=== PATIENT | male | born 1995 | race Caucasian/White ===

== ENCOUNTER 2025-04-26 14:20 | Outpatient (CLI) | payer OTHER, SELFPAY ==
--- NOTE | 2025-04-26 14:24 | XR_ITS ---
FINAL REPORT CLINICAL HISTORY: Subcutaneous mass of right foot COMPARISON: None FINDINGS: RIGHT FOOT 3 views of the right foot were obtained. There is no acute fracture or dislocation. Visualized joint spaces are normally aligned. There is a small os trigonum measuring 8 mm. Soft tissues are unremarkable. IMPRESSION: No acute bony abnormality. Small os trigonum. Reviewed, Interpreted and Dictated by Carlos Gutierrez MD Transcribed by Madelin Bajwa Authenticated and [facility]
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
--- OUTSIDE RECORDS SUMMARY | 2025-04-26 14:25 | XMS_ITS | Clinical Summary ---
Author Organization [facility] Address [address] [place] [address] Care Team Providers Care Prepress Specialist Name Role Phone Unavailable Primary Care Provider Unavailabl e Social History Tobacco Use Types Packs/Day Years Used Date Smoking Tobacco: Never Assessed Sex and Gender Information Value Date Recorded Sex Assigned at Not on file Legal Sex Male 12:27 PM EDT Gender Identity Not on file Sexual Orientation Not on file Plan of Treatment Health Maintenance Due Date Last Done Comments DTap,Tdap,and Td (1 - Tdap) 2008 Influenza Vaccine (Season Ended) 2025 RSV Vaccine (60+ or ) (1 - 1-dose 75+ series) 2072 HPV Aged Out No longer eligi ble based on patient's age to complete this topic Meningococcal conjugate emily nt 4 (MCV4) Aged Out No longer eligible b ased on patient's age to complete this topic Pneumococcal 0-49 Aged Out No longer eligible based on patient's age to complete this topic RSV Immunization (<20 months) Aged Out No longer eligible based on patient's age to complete this topic
--- OUTSIDE RECORDS SUMMARY | 2025-04-26 14:25 | XMS_ITS | Referral Summary ---
Author Organization [facility] Address [address] [place] [phone] Care Team Providers Care Portrait Photographer Name Role Phone Unavailable Primary Care Provider Unavailabl e Social History Tobacco Use Types Packs/Day Years Used Date Smoking Tobacco: Never Assessed Sex and Gender Information Value Date Recorded Sex Assigned at Not on file Legal Sex Male 12:27 PM EDT Gender Identity Not on file Sexual Orientation Not on file Plan of Treatment Not on file
== END 2025-04-26 23:59 | disposition home or self-care (01) ==
LOC: RAD 14:22
PROVIDERS: PCP Internal Medicine; Visit Provider Internal Medicine
DX: Q68.8 Other specified congenital musculoskeletal deformities (principal); R22.41 Localized swelling, mass and lump, right lower limb; M79.673 Pain in unspecified foot
CPT/HCPCS: 73630

== ENCOUNTER 2025-04-29 09:22 | Outpatient (CLI) | payer OTHER, SELFPAY ==
--- OUTSIDE RECORDS SUMMARY | 2025-04-29 09:25 | XMS_ITS | Clinical Summary ---
Author Organization [facility] Address [address] [place] [phone] Phone Care Team Providers Care Pmo Lead Name Role Phone Basil Hernandez MD Primary Care Provider [phone] Allergies No known active allergies Medications SUMAtriptan [...] (03/12/2022): Added automatically from request for surgery [id number] Tear of medial meniscus of right knee, current 0 03/12/2022 Overview (03/12/2022): Added automatically from request for surgery [id number] Tear of lateral meniscus of right knee, current 03/12/2022 Overview (03/12/2022): Added automatically from request for surgery [id number] Chondromalacia of right patella 03/12/2022 Overview (03/12/2022): Added automatically from request for surgery [id number] Osteochondral defect of femoral condyle 03/12/20 Overview (03/12/2022): Added automatically from request for surgery [id number] Resolved Problems Problem Noted Date Diagnosed Date [...] Knee/Right .; Surgeon: Robert Martinez MD; Location: [facility]; Service: Orthopedics Medical devices from this [...] Hernandez MD Medical Devices Implanted Type Area Ross Lift Operator Device Identifier Shelf Expiration Date Model / Serial / Lot Acl Tightrope With Fibertag - [id number] Implanted:Qty: 1 on 03/20/2022 by Robert Martinez MD at [facility] Right: Knee [employer] 12/09/2026 [id number] / / [id number] Screw Intfr Promise Biosure [id number] Absb Tapr Plla Hap - [id number] Implanted:Qty: 1 on 03/20/2022 by Robert Martinez MD at [facility] Right: Knee [employer]:ORTHO 07/22/2026 [id number] / / [id number] [place] Sut Footpt Ultra 4.5mm Tap In Dsgn Peek-[place] Ply - [id number] Implanted:Qty: 1 on 03/20/2022 by Robert Martinez MD at [facility] Right: Knee [employer] 11/29/2026 [id number] / / [id number] Insurance CHOICE PLUS Care Teams Pmo Lead Relationship Specialty Start Date End Date Basil Hernandez MD [address] [place] [address] [place] [address] PCP - General Family Medicine 06/01/23
--- OUTSIDE RECORDS SUMMARY | 2025-04-29 09:25 | XMS_ITS | Clinical Summary ---
Author Organization [facility] Address [address] [place] [address] Care Team Providers Care Varnish Blender Name Role Phone Unavailable Primary Care Provider [...]
--- OUTSIDE RECORDS SUMMARY | 2025-04-29 09:25 | XMS_ITS | Referral Summary ---
Author Organization [facility] Address [address] [place] [phone] Care Team Providers Care Art Objects Supervisor Name Role Phone Unavailable Primary Care Provider [...]
[2025-04-29 10:52] LABS: Basophils % 0.5 % (0.1-2.0); Eosinophils # 0.1 Kmm3 (0.0-0.4); Hematocrit 43.2 % (42.0-52.0); Hemoglobin 15.1 g/dL (14.1-18.0); Immature Granulocytes # 0.03 10^3uL; Immature Granulocytes % 0.5 %; Lymphocytes # 2.5 K/mm3 (0.7-4.5); Lymphocytes % 40.3 % (10-50); Mean Corpuscular Hemoglobin 29.8 pg (27.0-31.2); Mean Corpuscular Volume 85.4 fl (80-94); Mean Platelet Volume 10.3 fl (7.4-10.4); Monocytes # 0.5 K/mm3 (0.1-1.0); Monocytes % 7.2 % (1.7-9.3); Neutrophils # 3.2 K/mm3 (1.8-7.8); Neutrophils % 50.5 % (37.0-80.0); Nucleated Red Blood Cells # 0 10^3/uL; Nucleated Red Blood Cells % 0 %; Platelet Count 331 K/mm3 (142-424); Red Blood Count 5.06 M/mm3 (4.60-6.20); Red Cell Distribution Width 11.9 % (11.5-17.5); Red Cell Distribution Width-SD 36.5 fL; White Blood Count 6.3 K/mm3 (4.8-10.8)
[2025-04-29 11:40] LABS: Albumin Level 4.5 g/dl (3.5-5.0); Chloride 105 mmol/L (98-107); Sodium 141 mmol/L (136-145)
[2025-04-29 11:41] LABS: Potassium 4.5 mmoL/L (3.5-5.1)
[2025-04-29 11:43] LABS: Alanine Aminotransferase 36 U/L (12-78); Albumin/Globulin Ratio 1.3 (1.1-1.8); Alkaline Phosphatase 51 U/L (38-126); Anion Gap 10.5 mEq/L (5-15); Aspartate Amino Transferase 25 U/L (17-59); Bilirubin,Total 1.2 mg/dl (0.2-1.3); Blood Urea Nitrogen 14 mg/dl (9-20); Carbon Dioxide 30 mmol/L (22.0-30.0); Cholesterol 180 mg/dl (140-200); Estimated Glomerular Filt Rate 90 ml/min (>60); GFR (African American) 108 ML/MIN (>60); Globulin 3.4 g/dL (1.3-3.2); Total Protein,Serum 7.9 g/dl (6.3-8.2); Triglycerides 147 mg/dl (30-150); VLDL Cholesterol 29 mg/dL (0-40)
[2025-04-29 11:44] LABS: Calcium 9.2 mg/dl (8.4-10.2); Chol/HDL Ratio 5.8 (1-3.5); Glucose 90 mg/dl (74-100); HDL Cholesterol 31 mg/dl (40-60)
[2025-04-29 11:55] LABS: Direct LDL Cholesterol 100.16 mg/dL (100-129)
[2025-04-29 12:26] LABS: HIV Combo NEGATIVE (Negative)
[2025-04-29 12:33] LABS: Hepatitis C Ab Qual. W/ RFX NEGATIVE (Negative)
== END 2025-04-29 23:59 | disposition home or self-care (01) ==
LOC: LAB 09:23
PROVIDERS: PCP Internal Medicine; Visit Provider Internal Medicine
DX: Z00.00 Encounter for general adult medical examination without abnormal findings (principal); Z11.4 Encounter for screening for human immunodeficiency virus [HIV]; Z11.59 Encounter for screening for other viral diseases; Z13.220 Encounter for screening for lipoid disorders
CPT/HCPCS: 36415; 80053; 80061; 85025; 86803; 87389